=== PATIENT | male | born 1990 | race Caucasian/White ===

== ENCOUNTER 2017-03-20 22:25 | Inpatient (IN) | payer MEDICAID ==
[~2017-03-20] VITALS: Ht 180.3 cm; Wt 61.2 kg
[2017-03-20] MEDS ORDERED: diphenhydrAMINE 50 MG/1 ML VIAL IM ONE (22:45)
[2017-03-20] MEDS ORDERED: OLANZAPINE 10 MG VIAL IM ONE ×2 (22:45→23:00)
--- NOTE | 2017-03-20 22:59 | NUR ---
PT BIBA ([facility] RA 100) W/ [employer] ESCORT FOR AMS. PT IS NAKED AND DISORIENTED. PT ADMITTED TO USING CRYSTAL METH EARLIER IN THE DAY. PT IS COMBATIVE AND AGGRESSIVE. PT REMAINS IN [employer] HANDCUFFS. MD DOTY WAS NOTIFIED.
[2017-03-20] MEDS ORDERED: diphenhydrAMINE 50 MG/1 ML VIAL ONE (23:00)
[2017-03-20] MEDS ORDERED: PIPERACILLIN SODIUM/TAZOBACTAM 3.375 G in IV DEXTROSE 5% 50 ML IV ONE (23:15)
[2017-03-20] MEDS ORDERED: IV NORMAL SALINE 1000 ML BAG IV ONE ×2 (23:15)
[2017-03-20] MEDS ORDERED: ACETAMINOPHEN ES 500 MG TABLET PO ONE (23:15)
--- NOTE | 2017-03-20 23:29 | NUR ---
PT IN BED. PT REMAINS IN [employer] HANDCUFFS. [employer] STANDING BY. XRAY AT BEDSIDE.
[2017-03-20 23:43] LABS: ETHANOL < 3 MG/DL (0-0)
[2017-03-20 23:46] LABS: CARBON DIOXIDE 22 mmol/L (21-32); CHLORIDE 99 mmol/L (98-107); CREATININE 1.3 mg/dL (0.6-1.3); GLUCOSE 70 mg/dL (74-106); POTASSIUM 3.5 mmol/L (3.5-5.1); UREA NITROGEN, BLOOD 31 mg/dL (7-18)
[2017-03-20 23:51] LABS: ALANINE AMINOTRANSFERASE 80 U/L (16-63); ALKALINE PHOSPHATASE 79 U/L (50-136); ASPARTATE AMINOTRANSFERASE 138 U/L (15-37); BILIRUBIN,DIRECT 0.2 mg/dL (0.0-0.2); BILIRUBIN,TOTAL 0.8 mg/dL (0.2-1.0); TOTAL PROTEIN, SERUM 7.2 g/dL (6.4-8.2)
[2017-03-20 23:52] LABS: ACETAMINOPHEN < 2.0 ug/mL (10-30)
[2017-03-20 23:54] LABS: BASOPHILS # (AUTO) 0.1 K/uL (0.0-8.0); BASOPHILS % (AUTO) 0.8 % (0.0-2.0); EOSINOPHILS % (AUTO) 0.1 % (0.0-7.0); HEMATOCRIT 34.4 % (36.7-47.1); LYMPHOCYTES # (AUTO) 0.7 K/uL (20.0-40.0); LYMPHOCYTES % (AUTO) 7.4 % (20.5-51.5); MEAN CORPUSCULAR HEMOGLOBIN 32.1 uug (23.8-33.4); MEAN CORPUSCULAR HGB CONC 35 g/dL (32.5-36.3); MEAN CORPUSCULAR VOLUME 92.1 fL (73.0-96.2); MONOCYTES # (AUTO) 1.2 K/uL (2.0-10.0); MONOCYTES % (AUTO) 12.6 % (0.0-11.0); NEUTROPHILS # (AUTO) 7.8 K/uL (1.8-8.9); NEUTROPHILS % (AUTO) 79.1 % (38.5-71.5); PLATELET COUNT (AUTO) 249 K/uL (152-348); RED BLOOD CELL COUNT(AUTO) 3.73 MIL/uL (4.06-5.63); WHITE BLOOD COUNT (AUTO) 9.9 K/uL (3.6-10.2)
[2017-03-21] MEDS ORDERED: CEFTRIAXONE 1 G in IV DEXTROSE 5% 50 ML IV ONE ×2
--- NOTE | 2017-03-21 00:05 | NUR ---
PT IN BED PLACED IN HARD RESTRAINTS. PT IS CALM AND QUIET. PT WAS OFFERED BEVERAGE AND URINAL. PT REFUSED. [employer] OFFICERS HAVE LEFT.
[2017-03-21] MEDS ORDERED: CEFTRIAXONE 1 G VIAL ONE (00:46)
[2017-03-21] MEDS ORDERED: ACETAMINOPHEN ES 500 MG TABLET ONE (00:46)
[2017-03-21] MEDS ORDERED: PIPERACILLIN/TAZOBACTAM/D5W 50 ML IV ONE ×2 (00:46→07:45)
--- NOTE | 2017-03-21 01:35 | NUR ---
PT IS IN BED. PT REMAINS DISORIENTED. PT CONTINUES TO REFUSE BEVERAGE AND/OR TOILETING. IN-AND-OUT FINNEY WAS PLACED TO GET URINE SAMPLE. PT IS READJUSTED FOR COMFORT.
[2017-03-21 02:25] LABS: *BILIRUBIN,URIN NEGATIVE (NEGATIVE); *BLOOD, URINE NEGATIVE (NEGATIVE); *CLARITY,URINE CLEAR (CLEAR); *COLOR,URINE YELLOW (YELLOW); *KETONES,URINE 4+ (NEGATIVE); *PROTEIN,URINE 1+ (NEGATIVE); *UROBILINOGEN,URINE 0.2 E.U./dl (NORMAL); LEUKOCYTE ESTERASE ,URINE NEGATIVE (NEGATIVE); NITRITE, URINE NEGATIVE (NEGATIVE); PH,URINE 5.5 (5.0-8.0); UGLUCOSE NEGATIVE (NEGATIVE)
[2017-03-21 02:26] LABS: THYROID STIMULATING HORMONE 1.815 mIU/mL (0.358-3.740)
[2017-03-21 02:43] LABS: RBC,URINE 0-3 /HPF (0-3); WBC,URINE 0-3 /HPF (0-3)
[2017-03-21 02:44] LABS: BACTERIA,URINE NONE SEEN /HPF (NONE SEEN); MUCUS,URINE FEW /LPF (0-FEW); SQUAMOUS EPITHELIAL CELL,UR FEW /HPF (NONE SEEN)
[2017-03-21 02:50] LABS: *AMPHETAMINE, URINE POSITIVE (NEGATIVE); *BARBITURATE, URINE NEGATIVE (NEGATIVE); *CANNABINOID, URINE POSITIVE (NEGATIVE); *COCCAINE, URINE NEGATIVE (NEGATIVE); *OPIATE, URINE NEGATIVE (NEGATIVE); *PHENCYCLIDINE SCREEN,URINE NEGATIVE (NEGATIVE)
[2017-03-21] MEDS ORDERED: LORAZEPAM 2 MG/1 ML VIAL IV ONE (03:00)
--- NOTE | 2017-03-21 03:13 | NUR ---
SHAVON MILLAN ON PHONE W/ CAREN MILLAN.
--- NOTE | 2017-03-21 03:17 | NUR ---
CALLED FOR TELE BED ASSIGNMENT--#[phone]
[2017-03-21] MEDS ORDERED: LORAZEPAM 2 MG/1 ML VIAL ONE (03:18)
--- NOTE | 2017-03-21 04:13 | NUR ---
PT IN BED. RESTRAINTS REDUCED FROM ARMS TO ONLY ONE ARM. PT OFFERED BEVERAGE, AT MD'S REQUEST. PT REFUSED.
[2017-03-21] MEDS ORDERED: MAGNESIUM HYDROXIDE 30 ML LIQUID UDC PO PRN (05:30)
[2017-03-21] MEDS ORDERED: MORPHINE SULFATE 2 MG/1 ML DISP.SYRIN IV PRN (05:30)
[2017-03-21] MEDS ORDERED: HALOPERIDOL LACTATE 5 MG/1 ML VIAL IV PRN (05:30)
[2017-03-21] MEDS ORDERED: PIPERACILLIN/TAZOBACTAM/D5W 3.375 G in PREMIXED 1 EACH IV SCH ×3 (06:00→16:00)
[2017-03-21 06:07] LABS: BASOPHILS % (AUTO) 0.6 % (0.0-2.0); EOSINOPHILS # (AUTO) 0.1 K/uL (0.0-0.7); EOSINOPHILS % (AUTO) 1.2 % (0.0-7.0); HEMATOCRIT 32.3 % (36.7-47.1); HEMOGLOBIN 11.3 g/dL (12.5-16.3); LYMPHOCYTES # (AUTO) 1.3 K/uL (20.0-40.0); LYMPHOCYTES % (AUTO) 20.3 % (20.5-51.5); MEAN CORPUSCULAR HEMOGLOBIN 32.4 uug (23.8-33.4); MEAN CORPUSCULAR HGB CONC 35 g/dL (32.5-36.3); MEAN CORPUSCULAR VOLUME 92.3 fL (73.0-96.2); MONOCYTES # (AUTO) 1.2 K/uL (2.0-10.0); MONOCYTES % (AUTO) 18.4 % (0.0-11.0); NEUTROPHILS # (AUTO) 3.9 K/uL (1.8-8.9); NEUTROPHILS % (AUTO) 59.5 % (38.5-71.5); PLATELET COUNT (AUTO) 223 K/uL (152-348); WHITE BLOOD COUNT (AUTO) 6.5 K/uL (3.6-10.2)
--- NOTE | 2017-03-21 06:13 | NUR ---
PT IN BED. PT STILL REFUSES BEVERAGE AND/OR TOILETING. PT REMAINS DISORIENTED. VSS. BREATHING IS REGULAR AND UNLABORED. NO SIGNS OF DISTRESS WITNESSED.
[2017-03-21 06:18] LABS: POTASSIUM 3.4 mmol/L (3.5-5.1)
[2017-03-21 06:33] LABS: BILIRUBIN,TOTAL 0.6 mg/dL (0.2-1.0); MAGNESIUM 2.1 mg/dL (1.8-2.4); PHOSPHOROUS 4.3 mg/dL (2.5-4.9); TOTAL PROTEIN, SERUM 6.3 g/dL (6.4-8.2)
--- NOTE | 2017-03-21 07:03 | NUR ---
PT IN BED. PT IS NOW ALERT AND ORIENTED. HE NOW KNOWS HIS NAME, LOCATION AND REASON FOR BEING IN THE HOSPITAL. HE IS NOW REQUESTING FOOD. A BREAKFAST TRAY WAS ORDERED.
[2017-03-21 07:07] LABS: BAND % (MANUAL) 2 % (0-10); BASOPHILS % (MANUAL) 1 % (0-2); EOSINOPHILS % (MANUAL) 1 % (0-8); LYMPHOCYTES % (MANUAL) 22 % (20-40); MONOCYTES % (MANUAL) 13 % (2-10); NEUTROPHILS % (MANUAL) 60 % (42-75)
[2017-03-21 07:09] LABS: REACTIVE LYMPHOCYTES 1 % (0-0)
--- NOTE | 2017-03-21 07:45 | NUR ---
PT AWAKE NOW. PT AXO AT THIS TIME. REMOVED RESTRAINT.
--- NOTE | 2017-03-21 08:00 | NUR ---
[facility] PROVIDED [facility] . PT FINISHED IT WITH A VEY GOOD APETITE.
--- NOTE | 2017-03-21 08:43 | NUR ---
PT COMFORTABLE AND COOPERATIVE AT THIS TIME. DENIES ANY PAIN OR NAUSEA. PT ONLY COMPLAIN IS THAT HE IS VERY TIRED. ASKED THE PT IF HE WANTS TO INFORM ANY ONE THAT HE IS HERE, HE SAID THAT THE PT GIRL FRIEND ALREADY KNOWS THAT HE IS HERE.
--- NOTE | 2017-03-21 09:02 | NUR ---
TRANSFERED PT TO FLOOR IN STABLE CONDITION SOON THE BED AVAIALBLE. Addendum: 03/21/17 at 0912 by GABRIELLE PT TRANSFERED TO FLOOR AT 914.
[2017-03-21] MEDS: FAMOTIDINE. 20 MG/2 ML VIAL IV SCH (09:11)
[2017-03-21] MEDS ORDERED: FAMOTIDINE. 20 MG/2 ML VIAL IV ONE (09:23)
[2017-03-21 09:44] VITALS: BP 111/49
--- NOTE | 2017-03-21 10:11 | NUR ---
CLINICAL PHARMACY NOTE:VANCOMYCIN DOSING Request for vancomycin dosing on 26 y/o male 5'11" 135lbs for suspected infection Temp 99.7 BUN 24 Scr 1.0 WBC 6.5 bands 2 also on Zosyn Start vancomycin 1gm ivpb q12h estimated trough 14. Trough level ordered prior to morning dose on 03/23. Will continue to monitor
--- NOTE | 2017-03-21 10:54 | NUR ---
PT SLEEPING IN BED, AWAKENS TO NAME, DENIES PAIN. AXO3 REFUSING SKIN ASSESSMENT, STATES JUST WANTS TO SLEEP. 1:1 SITTER, CALL LIGHT IN REACH WILL CONTINUE TO MONITOR
[2017-03-21] MEDS ORDERED: VANCOMYCIN IV 1 G in PREMIXED 0 EACH IV SCH (11:00)
[2017-03-21] MEDS: ACETAMINOPHEN 325 MG TABLET PO PRN ×2 (11:30→20:26)
[2017-03-21] MEDS: POTASSIUM CHLORIDE 20 MEQ in IV NS 1000 ML 1,000 ML IV PRN ×2 (11:30→22:30)
[2017-03-21] MEDS ORDERED: POTASSIUM CHLORIDE 20 MEQ TAB.PRT.SR PO ONE (11:45)
[2017-03-21 12:47] VITALS: BP 116/58
--- NOTE | 2017-03-21 19:16 | NUR ---
PT temp 103, additional cooling measures applied, [facility] Infect[facility] Disease at nurses station made aware. 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
--- NOTE | 2017-03-21 19:25 | NUR ---
RECEIVED PT IN BED AWAKE, AXO X3. DENIES ANY PAIN AT THIS TIME. IV FLUIDS RUNNING AT 120ML. O2 SAT AT 98% ON RA. TEMP AT 103.0 COOLING MEASURES PROVIDED AT THIS TIME.
[2017-03-21 19:35] VITALS: BP 112/54
--- NOTE | 2017-03-21 20:26 | NUR ---
TYLENOL 650MG PO GIVE FOR TEMP. 103. COOLING MEASURE CONTINUED.
--- NOTE | 2017-03-21 21:00 | NUR ---
PT REFUSED SKIN ASSESSMENT.
[2017-03-21] MEDS: OSELTAMIVIR PHOSPHATE 75 MG CAPSULE PO SCH (21:24)
--- NOTE | 2017-03-21 21:30 | NUR ---
TAMIFLU 75MG GIVEN PER ORDER. TEMP NOW 102.8. CONTINUE WITH COOLING MEASURES. REMAINS AXO X3. DENIES ANY PAIN OR DISCOMFORT.
--- NOTE | 2017-03-21 22:30 | NUR ---
MAINTENANCE INSTRUCTOR MADE AWARE OF PT TEMP. OF 102.8. AWAITING FOR ANY NEW ORDER.
--- NOTE | 2017-03-21 23:30 | NUR ---
TEMP. NOW 102.3. CONTINUE WITH COOLING MEASURES. PT ASLEEP. NO S/SX OF PAIN OR DISCOMFORT.
[2017-03-22 00:24] VITALS: BP 103/47
--- NOTE | 2017-03-22 01:47 | NUR ---
TEMP 102.5. CONTINUE WITH COOLING MEASURE. NOTIFIED DOCTOR RADHA AND AWAITING ANY NEW ORDER.
--- NOTE | 2017-03-22 02:00 | NUR ---
DOCTOR RADHA WITH ORDER TO CHANGE TYLENOL 650MG TO Q6HR PRN AND ALSO ORDERED BLOOD CULTURE X2. ALL ORDER NOTED AND CARRIED OUT.
[2017-03-22] MEDS: ACETAMINOPHEN 325 MG TABLET PO PRN ×2 (02:36→14:08)
--- NOTE | 2017-03-22 03:37 | NUR ---
TYLENOL 650MG GIVEN AT 0236. CONTINUE TO PROVIDE COOLING MEASURE. TEMP DOWN TO 100.4 AX AT THIS TIME.
[2017-03-22 04:05] VITALS: BP 106/41
--- NOTE | 2017-03-22 06:00 | NUR ---
PT DENIES ANY PAIN OR DISCOMFORT. O2 SAT AT 98% ON RA. OCCASIONAL NON-PRODUCTIVE COUGH. GROUP A STREP ISOLATION. TEMP.99.5. CONTINUE WITH COOLING MEASURES. NO UNSAFE BEHAVIOR. WITH 1:1 SITTER. SINUS RYTHM ON TELE.
[2017-03-22 06:43] LABS: BASOPHILS % (AUTO) 0.3 % (0.0-2.0); EOSINOPHILS # (AUTO) 0.1 K/uL (0.0-0.7); HEMATOCRIT 30.9 % (36.7-47.1); HEMOGLOBIN 10.5 g/dL (12.5-16.3); LYMPHOCYTES % (AUTO) 16.4 % (20.5-51.5); MEAN CORPUSCULAR HEMOGLOBIN 31.9 uug (23.8-33.4); MEAN CORPUSCULAR HGB CONC 34 g/dL (32.5-36.3); MONOCYTES # (AUTO) 0.8 K/uL (2.0-10.0); MONOCYTES % (AUTO) 13.8 % (0.0-11.0); NEUTROPHILS # (AUTO) 4.1 K/uL (1.8-8.9); NEUTROPHILS % (AUTO) 68.5 % (38.5-71.5); PLATELET COUNT (AUTO) 184 K/uL (152-348); RED BLOOD CELL COUNT(AUTO) 3.28 MIL/uL (4.06-5.63)
[2017-03-22 07:01] LABS: CREATININE 0.8 mg/dL (0.6-1.3); MAGNESIUM 1.9 mg/dL (1.8-2.4); PHOSPHOROUS 2.7 mg/dL (2.5-4.9); POTASSIUM 3.4 mmol/L (3.5-5.1)
[2017-03-22] MEDS: POTASSIUM CHLORIDE 20 MEQ in IV NS 1000 ML 1,000 ML IV PRN ×2 (07:04→16:12)
[2017-03-22 07:38] VITALS: BP 115/59
--- NOTE | 2017-03-22 07:43 | NUR ---
RECEIVED PATIENT AWAKE ALERT AND ORIENTED ON ROOM AIR WITH NO SHORTNESS OF BREATH AT THIS THIS TIME HE IS CURRENTLY ON DROPLET ISOLATION FOR GROUP A STREP NO COUGHS AT THIS TIME TEMP AT THIS TIME IS LOW GRADE AT 99.4. IVF IN PROGRESS ORDERED MADE COMFORTABLE AND WILL CONTINUE TO OBSERVE.
[2017-03-22] MEDS: CEFTRIAXONE 1 G in IV DEXTROSE 5% 50 ML IV SCH (08:40)
[2017-03-22] MEDS: FAMOTIDINE. 20 MG/2 ML VIAL IV SCH (08:40)
[2017-03-22] MEDS: OSELTAMIVIR PHOSPHATE 75 MG CAPSULE PO SCH ×2 (08:41→20:06)
--- NOTE | 2017-03-22 10:00 | NUR ---
PATIENT ATE BREAKFAST TODAY AND NOTED THAT THERE IS ORDER FOR ULTRA SOUND OF THE ABDOMEN SO PATIENT PLACED NPO AT THIS TIME AND PATIENT EDUCATED.
[2017-03-22] MEDS: MORPHINE SULFATE 4 MG/1 ML DISP.SYRIN IV PRN (11:04)
[2017-03-22] MEDS ORDERED: POTASSIUM CHLORIDE 20 MEQ TAB.PRT.SR PO ONE (11:30)
--- NOTE | 2017-03-22 11:31 | NUR ---
POTASSIUM LEVEL IS 3.4 WITH REPLACEMENT FOR POTASSIUM WILL ADMINISTER AFTER THE ULTRA SOUND OF THE ABDOMEN.
[2017-03-22 11:34] VITALS: BP 115/58
--- NOTE | 2017-03-22 14:08 | NUR ---
TEMP AT THIS TIME IS 102.1 MEDICATED WITH TYLENOL WITH COOLING MEASURES CALLED LOUANN YANG AND LEFT A MESSAGE.
[2017-03-22 15:19] VITALS: BP 105/52
--- NOTE | 2017-03-22 18:35 | NUR ---
SEEN AND EXAMINED BY DR BRANDON WITH NEW ORDERS.
[2017-03-22] MEDS: OXCARBAZEPINE 150 MG TABLET PO SCH (18:48)
--- NOTE | 2017-03-22 19:00 | NUR ---
RECEIVED PATIENT IN BED ALERT ORIENTED, NO SOB NO CHEST PAIN NOTED, RYTHM SINUS RYTHM AT THIS TIME. CONT ON PAIN MANAGEMENT, CONT 1;1 SITTER FOR SAFETY, CONT TO MONITOR.
[2017-03-22 19:47] VITALS: BP 100/51
[2017-03-22] MEDS: IBUPROFEN 600 MG TABLET PO PRN (20:05)
[2017-03-22] MEDS: QUETIAPINE FUMARATE 100 MG TABLET PO SCH (20:06)
--- NOTE | 2017-03-22 20:30 | NUR ---
INFECTIOUS TRANSPORTATION MODELER MADE ROUNDS, AND NOTIFY HER THAT PATIENT STILL SPIKING TEMP. STATED TO COLLECT TROUT CULTURE OR SWAB THE TROUT, ORDERED CARRIED OUT. CONT TO MONITOR.
[2017-03-23] VITALS (8 sets, daily range): BP systolic 96–115; BP diastolic 38–73
[2017-03-23] MEDS: POTASSIUM CHLORIDE 20 MEQ in IV NS 1000 ML 1,000 ML IV PRN ×3 (00:43→17:42)
[2017-03-23] MEDS: ACETAMINOPHEN 325 MG TABLET PO PRN ×2 (04:05→20:52)
[2017-03-23] MEDS: LORAZEPAM 2 MG/1 ML VIAL IV PRN ×2 (04:05→20:52)
--- NOTE | 2017-03-23 04:20 | NUR ---
PATIENT HAS ELEVATED TEMP 103. ORALLY, GIVEN TYLENOL PO, COOLING MEASURES , AND ATIVAN FOR ANXIETY, PATIENT ALERT ORIENTED, TAUGHT TO USE ONLY ONE BLANKET, BUT PREFERRED TO USE TWO, NO S/S OF DISTRESS, CONT TO MONITOR. 111/65, PULSE 95, OXYGEN 96%, RA CONT TO MONITOR.
--- NOTE | 2017-03-23 05:01 | NUR ---
RECHECK TEMP 102.1 ORALLY, PATIENT AWAKE ALERT, DRINKS WATER, STILL HAS EPISODES OF NON PRODUCTIVE COUGH, ASSISTED WITH TOILETING, CONT 1;1 SITTER, LESLIEM SINUS RYMATTEOM. AT THIS TIME.
[2017-03-23 05:56] LABS: CARBON DIOXIDE 24 mmol/L (21-32); CHLORIDE 109 mmol/L (98-107); CREATININE 0.7 mg/dL (0.6-1.3); GLUCOSE 100 mg/dL (74-106); POTASSIUM 3.9 mmol/L (3.5-5.1); UREA NITROGEN, BLOOD 7 mg/dL (7-18)
--- NOTE | 2017-03-23 06:34 | NUR ---
RECHECK PATIENT TEMP 101.3 ORALLY, CONTINUE ON COOLING MEASURES, COMPLAIN OF GEN BODY PAIN GIVEN MORTIN 600MG PO, CONT 1;1 SITTER FOR SAFETY. CONT TO MONITOR.
[2017-03-23] MEDS: IBUPROFEN 600 MG TABLET PO PRN ×2 (06:37→14:50)
--- NOTE | 2017-03-23 07:08 | NUR ---
ENDORSED TO NEXT SHIFT REGARDING ELEVATED TEMP. CONTINUE TO MONITOR.
--- NOTE | 2017-03-23 07:30 | NUR ---
RECEIVED PATIENT IN BED ASLEEP SLEEPY BUT RESPONDS WHEN SPOKEN TO PATIENT APPARENTLY RECEIVED ATIVAN EARLIER THIS AM ALL NEEDS ANTICIPATED AND SATISFIED.REMAIN ON IVF ORDERED WITH NO S/S OF INFILTERATION ON SITE.REMAIN ON ONE ON ONE SITTER FOR SAFETY.CURRENTLY TEMP IS 100.5 COOLING MEASURES CONTINUES WILL CONTINUE TO OBSERVE PATIENT.
[2017-03-23] MEDS: CEFTRIAXONE 1 G in IV DEXTROSE 5% 50 ML IV SCH (08:43)
[2017-03-23] MEDS: FAMOTIDINE 20 MG TABLET PO SCH (08:43)
[2017-03-23] MEDS: OSELTAMIVIR PHOSPHATE 75 MG CAPSULE PO SCH ×2 (08:43→20:52)
[2017-03-23] MEDS: OXCARBAZEPINE 150 MG TABLET PO SCH ×2 (08:43→16:20)
--- NOTE | 2017-03-23 14:50 | NUR ---
TEMP AT THIS TIME IS 103.1 MOTRIN GIVEN ORDERED AND COOLING MEASURES STARTED BLANKETS REMOVED FROM THE PATIENT AND MADE COMFORTABLE
--- NOTE | 2017-03-23 15:00 | NUR ---
CALLED DR BEYER AND NOTIFIED HIM THAT PATIENT HAS A FEVER OF 103.1 AND INFORMED HIM THAT I ALREADY GAVE HIM MOTRIN WITH COOLING MEASURES WITH NO NEW ORDERS AT THIS TIME.
--- NOTE | 2017-03-23 17:32 | NUR ---
CURRENT TEMP IS NOW 100.9 FLUIDS ENCOURAGED AND WILL CONTINUE TO OBSERVE PATIENT.REMAIN ON ONE ON ONE SITTER FOR SAFETY PATIENT GETS CONFUSED AT TIMES GETTING OUT OF BED REQUIRING REDIRECTION AT RISK FOR FALLS RELATED TO POOR SAFETY AWARENESS.
--- NOTE | 2017-03-23 19:25 | NUR ---
PT RECEIVED IN BED, AWAKE. FAMILY AT BEDSIDE. A/OX4. ABLE TO MAKE NEEDS KNOWN. VS/ STABLE. IN NO ACUTE DISTRESS. PT C/O PAIN 6/10 AT THIS TIME. IVF INFUSING. ON RA, TOLERATING WELL. PT IS FEBRILE AT 101.3F. 85 SINUS RHYTHM ON THE TELE MONITOR. PT REQUESTS SHOWER, TAKEN OFF TELE, IN STABLE CONDITION. SAFETY MEASURES IMPLEMENTED. CALL LIGHT WITHIN REACH.
--- NOTE | 2017-03-23 19:45 | NUR ---
PT PLACED BACK ON TELE MONITOR. IN STABLE CONDITION. ONE TO ONE SITTER AT BEDSIDE FOR SAFETY.
[2017-03-23] MEDS: QUETIAPINE FUMARATE 100 MG TABLET PO SCH (20:52)
--- NOTE | 2017-03-23 21:00 | NUR ---
PT STATES FEELING ANXIOUS, UNABLE TO FEEL COMFORTABLE IN ROOM AND BED. TOSSING AND TURNING. GETTING UP AND SITTING AT EDGE OF BED. ATIVAN ADMINISTERED ORDERED.
[2017-03-24] VITALS: BP 96/98
[2017-03-24] MEDS: POTASSIUM CHLORIDE 20 MEQ in IV NS 1000 ML 1,000 ML IV PRN (03:17)
[2017-03-24 04:00] VITALS: BP 101/49
[2017-03-24 04:32] VITALS: BP 101/49
--- NOTE | 2017-03-24 06:05 | NUR ---
END OF SHIFT NOTES. PT SLEPT WELL THROUGHOUT SHIFT. IN STABLE CONDITION. 68 SINUS RHYTHM ON THE TELE MONITOR. IVF INFUSING. ON RA, TOLERATED WELL. AFEBRILE. ONE TO ONE SITTER REMAINED AT BEDSIDE FOR SAFETY. ALL NEEDS ATTENDED. SAFETY MAINTAINED. CALL LIGHT WITHIN REACH.
--- NOTE | 2017-03-24 08:00 | NUR ---
Patient on tele monitor sinus endy 58. Patient is alert, in no distress. 1:1 sitter provided for safety.
[2017-03-24] MEDS: CEFTRIAXONE 1 G in IV DEXTROSE 5% 50 ML IV SCH (08:27)
[2017-03-24] MEDS: FAMOTIDINE 20 MG TABLET PO SCH (08:28)
[2017-03-24] MEDS: OXCARBAZEPINE 150 MG TABLET PO SCH (08:28)
[2017-03-24] MEDS: OSELTAMIVIR PHOSPHATE 75 MG CAPSULE PO SCH (08:28)
[2017-03-24] MEDS: MORPHINE SULFATE 4 MG/1 ML DISP.SYRIN IV PRN (08:35)
[2017-03-24] MEDS: ACETAMINOPHEN 325 MG TABLET PO PRN (10:39)
--- NOTE | 2017-03-24 12:27 | NUR ---
Patient left the unit AMA. Patient is alert, in no distress, accompanied by father. IV access removed, ID band removed. Patient signed AMA form, form placed in patient's chart. notified. spine supervisor and special agent in charge notified. Addendum: 03/24/17 at 1325 by MARY STALLWORTH RN Add: Educated patient and family/father regarding risks of leaving against medical advice. Attempts to convince for patient to stay made but unsuccessful. Patient was loud, cursing but not towards anyone in particular. Patient demanded to be discharged right away, threatened to leave if papers to be signed is not going to be ready.
== END 2017-03-24 12:30 | disposition left against medical advice (07) | DRG 812 ==
LOC: ER 22:27 → TELE 03-21 08:59 → MED 03-24 10:12
PROVIDERS: ADMIT Internal Medicine; ATTEND Nurse Practitioner Acute Care
DX: T43.621A Poisoning by amphetamines, accidental (unintentional), initial encounter (principal); J69.0 Pneumonitis due to inhalation of food and vomit; G92 Toxic encephalopathy; M62.82 Rhabdomyolysis; F31.64 Bipolar disorder, current episode mixed, severe, with psychotic features; Y92.410 Unspecified street and highway as the place of occurrence of the external cause; F15.10 Other stimulant abuse, uncomplicated; F10.10 Alcohol abuse, uncomplicated; Y90.9 Presence of alcohol in blood, level not specified; Z59.0 Homelessness; F12.10 Cannabis abuse, uncomplicated; F17.210 Nicotine dependence, cigarettes, uncomplicated; D64.9 Anemia, unspecified; R50.9 Fever, unspecified; R74.0 Nonspecific elevation of levels of transaminase and lactic acid dehydrogenase [LDH]; F15.188 Other stimulant abuse with other stimulant-induced disorder; E87.6 Hypokalemia
CPT/HCPCS: 36415; 71045; 76700; 80307; 83605; 83735; 84100; 84443; 85025; 85730; 86403; 87040; 87086; 87400; 87806; 93005; 93307; A4663; A9150; C1758; G0480; G0480-TC; J0696; J1200; J2060; J2270; J2358; J2543; J3370; J3480; J3490; J7030; J7060

== ENCOUNTER 2023-07-17 04:07 | Emergency (ER) | payer MEDICAID, OTHER ==
[~2023-07-17] VITALS: Ht 180.3 cm; Wt 74.8 kg
[2023-07-17] MEDS: KETOROLAC TROMETHAMINE 30 MG INJ IM ONE (05:45)
[2023-07-17 05:46] LABS: BASOPHILS % (AUTO) 0.5 % (0.0-2.0); EOSINOPHILS # (AUTO) 0.4 K/uL (0.0-0.7); EOSINOPHILS % (AUTO) 5.1 % (0.0-7.0); HEMATOCRIT 40.2 % (36.7-47.1); HEMOGLOBIN 13.9 g/dL (12.5-16.3); LYMPHOCYTES # (AUTO) 1.6 K/uL (0.8-4.8); LYMPHOCYTES % (AUTO) 18.9 % (20.5-51.5); MEAN CORPUSCULAR HEMOGLOBIN 32.7 uug (23.8-33.4); MEAN CORPUSCULAR HGB CONC 35 g/dL (32.5-36.3); MEAN CORPUSCULAR VOLUME 94.8 fL (73.0-96.2); MONOCYTES # (AUTO) 0.5 K/uL (0.1-1.30); MONOCYTES % (AUTO) 6.4 % (0.0-11.0); NEUTROPHILS # (AUTO) 5.7 K/uL (1.8-8.9); NEUTROPHILS % (AUTO) 69.1 % (38.5-71.5); PLATELET COUNT (AUTO) 344 K/uL (152-348); RED BLOOD CELL COUNT(AUTO) 4.24 MIL/uL (4.06-5.63); RED CELL DISTRIBUTION WIDTH 14.4 % (12.1-16.2); WHITE BLOOD COUNT (AUTO) 8.3 K/uL (3.6-10.2)
[2023-07-17 05:49] LABS: DIFFERENTIAL COMMENT 1
[2023-07-17 05:57] LABS: *AMPHETAMINE, URINE NEGATIVE (NEGATIVE); *BARBITURATE, URINE NEGATIVE (NEGATIVE); *BENZODIAZEPINE, URINE NEGATIVE (NEGATIVE); *CANNABINOID, URINE NEGATIVE (NEGATIVE); *COCCAINE, URINE NEGATIVE (NEGATIVE); *OPIATE, URINE NEGATIVE (NEGATIVE); *PHENCYCLIDINE SCREEN,URINE NEGATIVE (NEGATIVE)
[2023-07-17 06:01] LABS: FENTANYL, URINE NEGATIVE (NEGATIVE)
[2023-07-17 06:12] LABS: *BILIRUBIN,URIN NEGATIVE (NEGATIVE); *CLARITY,URINE CLEAR (CLEAR); *COLOR,URINE YELLOW (YELLOW); *KETONES,URINE NEGATIVE (NEGATIVE); *PROTEIN,URINE NEGATIVE (NEGATIVE); *UROBILINOGEN,URINE 0.2 E.U./dl (NORMAL); LEUKOCYTE ESTERASE ,URINE NEGATIVE (NEGATIVE); NITRITE, URINE NEGATIVE (NEGATIVE); PH,URINE 5.5 (5.0-8.0); UGLUCOSE NEGATIVE (NEGATIVE)
[2023-07-17 06:30] LABS: *BLOOD, URINE TRACE (NEGATIVE)
[2023-07-17 06:36] LABS: CALCIUM 8.8 mg/dL (8.5-10.1); CREATININE 0.8 mg/dL (0.6-1.3)
[2023-07-17 06:42] LABS: RBC,URINE 0-3 /HPF (0-3); WBC,URINE NONE SEEN /HPF (0-3)
[2023-07-17 06:43] LABS: BACTERIA,URINE NONE SEEN /HPF (NONE SEEN); SQUAMOUS EPITHELIAL CELL,UR NONE SEEN /HPF (NONE SEEN)
[2023-07-17 06:45] LABS: ALBUMIN 4.3 g/dL (3.4-5.0); BILIRUBIN,TOTAL 0.4 mg/dL (0.2-1.0); TOTAL PROTEIN, SERUM 7.8 g/dL (6.4-8.2)
[2023-07-17] MEDS ORDERED: HALOPERIDOL 0.5 MG TABLET ONE (07:00)
[2023-07-17] MEDS ORDERED: KETOROLAC TROMETHAMINE 30 MG INJ ONE (07:00)
[2023-07-17] MEDS: HALOPERIDOL 0.5 MG TABLET PO ONE (07:06)
[2023-07-17] MEDS ORDERED: HYDR-3980 PO (07:22)
[2023-07-17] MEDS: IV NORMAL SALINE 1000 ML BAG IV ONE (07:36)
[2023-07-17 07:40] VITALS: BP 141/75; TEMP 98.3; O2SAT 98
== END 2023-07-17 07:42 | disposition home or self-care (01) ==
LOC: ER 04:11
DX: M62.82 Rhabdomyolysis (principal); F29 Unspecified psychosis not due to a substance or known physiological condition; M54.9 Dorsalgia, unspecified; Z79.899 Other long term (current) drug therapy; W18.39XA Other fall on same level, initial encounter; Y93.89 Activity, other specified; Y92.89 Other specified places as the place of occurrence of the external cause; Y99.8 Other external cause status
CPT/HCPCS: 99284; 80053; 82550; 85025; 36415; 72072; 96372; 80307; 81001; J1885; A4606; A4663